=== PATIENT | female | born 1975 | race Caucasian/White ===

== ENCOUNTER 2016-06-15 09:31 | Emergency (ER) | payer OTHER ==
[~2016-06-15 09:31] MED LIST: Sodium Chloride 0.9% 1,000 ML BAG ONE
[2016-06-15] MEDS ORDERED: Ondansetron HCl/PF 4 MG/2 ML Vial ONE (10:33)
[2016-06-15] MEDS ORDERED: Ketorolac Tromethamine 30 MG/ML VIAL ONE (10:33)
[2016-06-15 10:36] LABS: #Basophils 0.1 thou/uL (0.0-0.2); #Eosinphils 0.2 thou/uL (0.0-0.7); #Lymphocytes 1.6 thou/uL (1.20-3.40); #Monocytes 0.5 thou/uL (0.11-0.59); #Neutrophils 4.6 thou/uL (1.40-6.50); %Basophils 1.9 % (0.0-1.0); %Eosinophils 2.5 % (0.0-10.0); %Lymphocytes 23.2 % (21.0-51.0); %Monocytes 7.2 % (0.0-10.0); %Neutrophils 65.3 % (42.0-75.0); Hemoglobin 15.1 g/dL (12.0-16.0); Mean Corpuscular HGB CONC 33.8 g/dL (32.0-36.0); Mean Corpuscular Volume 94.8 fl (81.0-99.0); Platelet Count 270 thou/uL (130-400); Red Blood Cell (RBC) Count 4.73 mill/uL (4.20-5.40)
[2016-06-15 10:52] LABS: ALT (SGPT) 15 U/L (0-55); AST (SGOT) 16 U/L (5-34); Albumin 4.3 g/dL (3.5-5.0); Alkaline Phosphatase 69 U/L (40-150); Anion Gap 15 mmol/L (10-20); BUN (Urea Nitrogen) 15 mg/dL (7.0-18.7); Bilirubin, Total 0.8 mg/dL (0.2-1.2); Calc. Creatinine Clearance 0 mL/min (70-130); Carbon Dioxide 22 mmol/L (22-29); Chloride 108 mmol/L (98-107); Estimated GFR-MDRD 82; Globulin 2.4 g/dL (2.4-3.5); Glucose 99 mg/dL (70-105); Potassium 4.5 mmol/L (3.5-5.1); Protein, Total 6.7 g/dL (6.0-8.3); Sodium 140 mmol/L (136-145)
[2016-06-15 10:54] LABS: BHCG - Serum NEGATIVE (NEGATIVE); Pregs Control Background? CLEAR/WHITE (CLR/WHITE); Pregs Control Bar Appear? YES (CONTROL BAR)
[2016-06-15 11:52] LABS: Bilirubin Negative (Negative); Blood, Urine Negative (Negative); Clarity Cloudy (Clear); Glucose, Urine (Dipstick) Negative (Negative); Leukocyte Negative (Negative); Nitrite Negative (Negative); Protein, Urine (Dipstick) Negative (Neg-Trace); Urobilinogen 0.2 mg/dL (0.2-1.0); pH, Urine 5.5 (5.0-9.0)
[2016-06-15 11:53] LABS: Specific Gravity, Urine 1.026 (1.002-1.036)
[2016-06-15 11:54] LABS: Bacteria/HPF 1+ HPF (None Seen); RBC/HPF 0-3 HPF (0-3); Squamous Epithelial 0-3 HPF (0-3); WBC/HPF 0-3 HPF (0-3)
[2016-06-15 11:55] LABS: Crystals/HPF 1+ AMORPH URATES HPF (Negative)
[2016-06-15] MEDS ORDERED: Iopamidol 370 76% 100 ML VIAL ONE (13:07)
--- NOTE | 2016-06-15 14:14 | CT ---
+CT ABDOMEN AND PELVIS WITH IV AND ORAL CONTRAST: HISTORY: Abdomen pain. Diarrhea. FINDINGS: No comparison. The lung bases are clear. The liver, spleen, kidneys, adrenal glands, and pancreas have a normal CT appearance. No enlarged lymph nodes or free fluid are apparent. The appendix is n ot inflamed. Urinary bladder is unremarkable. Arcuate configuration of the uterus is suspected. IMPRESSION: No acute abnormalities are demonstrated. POS: [facility]
--- NOTE | 2016-06-15 15:54 | ERRECORD ---
[facility] EMERGENCY RECORD HPI ABDOMINAL PAIN (10:09 LLDO) CHIEF COMPLAINTS: Patient presents for evaluation of abdominal pain, Patient presents for evaluation of has had intermittent diarrhea and not feeling well for 4 days. nausea w/o vomiting. fever, low grade. the severe LLQ pain started about 0300 this morning and has been worsening. HISTORIAN: History provided by patient, History provided by patient's spouse. LOCATION FEMALE: Symptoms are localized, most severe in the left lower quadrant. QUALITY: Pain is dull in nature, described as aching, described as cramping, described as BECOMES SHARP WITH MOVEMENT OR PALPATION. SEVERITY: Maximum severity of symptoms severe, Currently symptoms are moderate. TIME COURSE: Gradual onset of symptoms, Symptoms are constant, Symptoms are worsening. ASSOCIATED WITH FEMALE: No associated symptoms, No associated recent antibiotic use, No associated bright red blood per rectum, No associated chills, No associated constipation, Associated with diarrhea, Associated with fever, Measured maximum temperature 101 to 101.9 degrees, Associated with loss of appetite, Associated with nausea, No associated trauma, No associated urinary tract infection signs or symptoms, No associated vomiting. RELIEVED BY: Patient's condition relieved by nothing. EXACERBATED BY: Patient's condition exacerbated by movement, Patient's condition exacerbated by PALPATION. RISK FACTORS FEMALE: No ectopic risk factors present, No abdominal aortic aneurysm risk factors, No coronary artery disease risk factors. ROS CONSTITUTIONAL: Historian denies chills, reports fatigue, reports fever, reports weakness. (10:15 LLDO) EYES: Negative eye review of systems, Historian denies eye pain, denies eye redness, denies eye discharge. (10:18 LLDO) ENT: SEE HPI...DRY MOUTH. (10:15 LLDO) CARDIOVASCULAR: Negative cardiovascular review of systems, Historian denies chest pain, no radiation, Historian denies diaphoresis, denies syncope. (10:18 LLDO) RESPIRATORY: Negative respiratory review of systems, Historian denies cough, denies shortness of breath, denies sputum. (10:18 LLDO) GI: Historian reports abdominal pain, reports anorexia, reports appetite changes, denies constipation, reports diarrhea, denies hematemesis, denies hematochezia, denies jaundice, denies melena, reports nausea, reports stool changes, denies vomiting. any food or water triggers diarrhea. (10:15 LLDO) GENITOURINARY FEMALE: Historian reports urine output changes. (10:15 LLDO) &a-1R&a+25V*p+0X*c0233A*c202B*c15G*c2P*p-0X&a-25V&a+1R Name: Jeannine Galdamez : 1975 F40 MedRec: [id number] AcctNum: [id number] Prepared: Perri Jun 15, 2016 21:13 by Interface Page 1 of 5 pMD [facility] EMERGENCY RECORD MUSCULOSKELETAL: Negative musculoskeletal review of systems, Historian denies arthralgias, denies back pain, denies injury, denies myalgias, denies neck pain. (10:18 LLDO) SKIN: Negative skin review of systems, Historian denies cellulitis, denies rash, denies skin changes, denies skin lesions. (10:18 LLDO) NEUROLOGIC: Negative neurologic review of systems, Historian denies confusion, denies dizziness, denies focal weakness, denies mental status changes. (10:18 LLDO) HEMO/LYMPHATIC: Normal hematologic/lymphatic system review, Historian denies abnormal blood clotting, denies gum bleeding, denies petechiae. (10:18 LLDO) ALLERGIC/IMMUNOLOGIC: Normal allergy/immunologic system review, Historian denies eczema, denies environmental allergies, denies food allergies. (10:18 LLDO) PSYCHIATRIC: Negative psychiatric review of systems, Historian denies alcohol abuse, denies anxiety, denies depression, denies drug abuse, denies hallucinations. (10:18 LLDO) NOTES: All systems reviewed, negative except as described above. (10:15 LLDO) PAST MEDICAL HISTORY MEDICAL HISTORY: No past medical history, Flu vaccine up to date, Tetanus not up to date, Pneumococcal vaccine up to date, Past medical history includes gynecologic history, polycystic ovary disease, Notes: VERIFIED 10-10-14, Notes: hx of anxiety,. (11:46 SCHI) FEMALE SURGICAL HISTORY: ABLATION UTERINE, TUBAL LIGATOIN. (11:46 SCHI) PSYCHIATRIC HISTORY: Notes: ANXIETY, Psychiatric history includes, anxiety, Previous psychiatric history: DIAZEPAM 5 MG 2/DAY. (11:46 SCHI) SOCIAL HISTORY: Patient drinks socially, every week, Patient currently uses tobacco, smokes cigarettes, Patient smokes 1/2 packs per day, Patient drinks every day, less than 5 drinks per day, Patient denies drug use, Patient currently uses tobacco, smokes cigarettes, 3-4 CIGARETTES PER DAY, Lives at home. (11:46 SCHI) NOTES: Nursing records reviewed, Agree with nursing records, Medication list reviewed. (10:18 LLDO) KNOWN ALLERGIES Flagyl: Source: Patient, - HIVES, DIZZINESS, HEADACHE CURRENT MEDICATIONS (09:45 SCHI) Valium: TABLET : Strength - 5 mg : ORAL Patient Dose: 5 mg Oral 2 times a day (before meals). Zoloft: TABLET : Strength - 100 mg : ORAL Patient Dose: 50 mg Oral once a day. &a-1R&a+25V*p+0X*l3870B*c202B*c15G*c2P*p-0X&a-25V&a+1R Name: Jeannine Galdamez : 1975 F40 MedRec: [id number] AcctNum: [id number] Prepared: Perri Jun 15, 2016 21:13 by Interface Page 2 of 5 pMD [facility] EMERGENCY RECORD VITAL SIGNS VITAL SIGNS: BP: 121/67, Pulse: 80, Resp: 18, Temp: 98.4 (Tympanic), Pain: 7 (Constant), O2 sat: 99 on Room Air, Time: 06/15/2016 09:43. (09:43 SCHI) BP: 117/81, Pulse: 78, Resp: 18, Temp: 98.6 (Tympanic), Pain: 0, O2 sat: 99 on Room Air, Time: 06/15/2016 16:00. (16:00 SCHI) BP: 123/68, Pulse: 77, Time: 06/15/2016 11:00. (11:00 SCHI) BP: 117/63, Pulse: 77, Resp: 18, Pain: 5, O2 sat: 98 on Room Air, Time: 06/15/2016 12:00. (12:00 SCHI) BP: 109/80, Pulse: 81, Resp: 18, Pain: 5, O2 sat: 97 on Room Air, Time: 06/15/2016 13:00. (13:00 SCHI) BP: 117/63, Pulse: 71, Resp: 18, Pain: 4, O2 sat: 99 on Room Air, Time: 06/15/2016 14:00. (14:00 SCHI) BP: 116/80, Pulse: 87, Resp: 20, Pain: 2, O2 sat: 99 on Room Air, Time: 06/15/2016 15:00. (15:00 SCHI) PHYSICAL EXAM CONSTITUTIONAL: Vital Signs Reviewed, Patient afebrile, Pulse normal, Blood pressure normal, Respiratory rate normal, Patient appears non toxic, Patient appears, in moderate pain distress, but intermittently severe, Patient alert and oriented to person, place and time, Nursing notes reviewed. (10:16 LLDO) HEAD: Head exam normal, Head exam included findings of head atraumatic, normocephalic. (10:18 LLDO) EYES: Eye exam normal, Eye exam included findings of eyelids normal to inspection, Pupils equally round and reactive to light, Extraocular muscles intact. (10:18 LLDO) ENT: Ear exam normal, Nose exam normal, Pharynx exam normal, Uvula exam normal, Tonsil exam normal, Mouth exam included findings of, mucous membranes dry. (10:16 LLDO) NECK: Neck exam normal, Neck exam included findings of normal range of motion, Trachea midline, no meningeal signs, no tenderness. (10:18 LLDO) RESPIRATORY CHEST: Respiratory and chest exam normal, Respiratory exam included findings of, Chest exam included findings of chest movement symmetrical, Chest expansion equal. (10:18 LLDO) CARDIOVASCULAR: Cardiovascular assessment normal, Cardiovascular exam included findings of heart rate regular rate and rhythm, Heart sounds normal. (10:18 LLDO) ABDOMEN FEMALE: Abdominal exam included findings of abdomen tender, to the left lower quadrant, moderate intensity, Bowel sounds, hyperactive, Liver normal, Spleen normal, no distension, no mass, no pulsatile masses, no peritoneal signs, Rovsing's sign absent. (10:16 LLDO) BACK: Back exam normal, Back exam included findings of normal inspection, range of motion normal. (10:18 LLDO) UPPER EXTREMITY: Upper extremity exam normal, Upper extremity &a-1R&a+25V*p+0X*x3911Q*c202B*c15G*c2P*p-0X&a-25V&a+1R Name: Jeannine Galdamez : 1975 F40 MedRec: [id number] AcctNum: [id number] Prepared: Perri Jun 15, 2016 21:13 by Interface Page 3 of 5 pMD [facility] EMERGENCY RECORD exam included findings of inspection normal, Range of motion normal. (10:18 LLDO) LOWER EXTREMITY: Lower extremity exam normal, Lower extremity exam included findings of inspection normal, Range of motion normal. (10:18 LLDO) NEURO: Neuro exam normal, Neuro exam findings include patient oriented to person, place and time, Speech normal, Errol coma scale 15. (10:18 LLDO) SKIN: Skin exam normal, Skin exam included findings of skin warm, dry, and normal in color, no rash. (10:18 LLDO) PSYCHIATRIC: Psychiatric exam normal, Psychiatric exam included findings of patient oriented to person place and time, Normal affect. (10:18 LLDO) MEDICATION ADMINISTRATION SUMMARY Drug Name: Bentyl oral, Dose Ordered: 20 mg, Route: Oral, Status: Given, Time: 14:53 06/15/2016, Drug Name: Duramorph (PF), Dose Ordered: 4 mg, Route: IV Push, Status: Given, Time: 14:45 06/15/2016, Drug Name: Duramorph (PF), Dose Ordered: 4 mg, Route: IV Push, Status: Given, Time: 10:51 06/15/2016, Drug Name: Toradol injection, Dose Ordered: 30 mg, Route: IV Push, Status: Given, Time: 10:51 06/15/2016, Drug Name: Zofran intravenous, Dose Ordered: 8 mg, Route: IV Push, Status: Given, Time: 10:50 06/15/2016, Drug Name: *sodium chloride 0.9 % intravenous, Dose Ordered: 1 L, Route: IV Fluid Infusion, Status: Given, Time: 10:50 06/15/2016, *Additional information available in notes, Detailed record available in Medication Service section. PROBLEM LIST No recorded problems DIAGNOSIS (15:42 LLDO) FINAL: PRIMARY: diverticulitis. PRESCRIPTION Bentyl oral: TABLET : 20 mg : ORAL : Quantity: 1 Unit: tab(s) Route: ORAL Schedule: every 8 hours PRN Dispense: 30 Unit: tab(s) May substitute. Refills: 1 . (15:45 LLDO) NOTES: No Refills. (15:45 LLDO) Keflex: CAPSULE (HARD, SOFT, ETC.) : 500 mg : ORAL : Quantity: 1 Unit: cap(s) Route: ORAL Schedule: 3 times a day Dispense: 30 May substitute. Refills: No Refills . (15:45 LLDO) NOTES: ^s=No Refills No Refills. (15:45 LLDO) Septra DS: TABLET : 800 mg-160 mg : ORAL : Quantity: 1 &a-1R&a+25V*p+0X*v4798G*c202B*c15G*c2P*p-0X&a-25V&a+1R Name: Jeannine Galdamez : 1975 F40 MedRec: [id number] AcctNum: [id number] Prepared: [facility] Jun 15, 2016 21:13 by Interface Page 4 of 5 pMD [facility] EMERGENCY RECORD Unit: tab(s) Route: ORAL Schedule: 2 times a day (before meals) Dispense: 20 May substitute. Refills: No Refills . (15:45 LLDO) NOTES: ^s=^s=No Refills No Refills No Refills. (15:45 LLDO) Tylenol-Codeine #3: TABLET : 300 mg-30 mg : ORAL : Quantity: 1-2 Unit: tab(s) Route: ORAL Schedule: every 4 hours prn Dispense: 30 Unit: tab(s) May substitute. Refills: No Refills . (15:45 LLDO) NOTES: ^s=^s=<CARET>s=No Refills No Refills No Refills No Refills. (15:45 LLDO) Zofran ODT: TABLET, RAPID DISSOLVE : 4 mg : ORAL : Quantity: 1-2 Unit: tab(s) Route: ORAL Schedule: every 6 hours PRN Dispense: 20 May substitute. Refills: 1 . (15:45 LLDO) NOTES: DISSOLVE UNDER TONGUE No Refills. (15:45 LLDO) Zofran ODT (REPRINT): TABLET, RAPID DISSOLVE : 4 mg : ORAL : Quantity: 1-2 Unit: tab(s) Route: ORAL Schedule: every 6 hours PRN Dispense: 20 May substitute. Refills: 1 . (15:53 LLDO) Tylenol-Codeine #3 (REPRINT): TABLET : 300 mg-30 mg : ORAL : Quantity: 1-2 Unit: tab(s) Route: ORAL Schedule: every 4 hours prn Dispense: 30 Unit: tab(s) May substitute. Refills: No Refills . (15:53 LLDO) Septra DS (REPRINT): TABLET : 800 mg-160 mg : ORAL : Quantity: 1 Unit: tab(s) Route: ORAL Schedule: 2 times a day (before meals) Dispense: 20 May substitute. Refills: No Refills . (15:54 LLDO) Keflex (REPRINT): CAPSULE (HARD, SOFT, ETC.) : 500 mg : ORAL : Quantity: 1 Unit: cap(s) Route: ORAL Schedule: 3 times a day Dispense: 30 May substitute. Refills: No Refills . (15:54 LLDO) Bentyl oral (REPRINT): TABLET : 20 mg : ORAL : Quantity: 1 Unit: tab(s) Route: ORAL Schedule: every 8 hours PRN Dispense: 30 Unit: tab(s) May substitute. Refills: 1 . (15:54 LLDO) DISPOSITION PATIENT: Disposition Type: Discharge, Disposition: *Discharge Home. (15:42 LLDO) Patient left the department. (16:00 [facility] Thornton: ELVIS=MD Pérez, Filemon [facility]ADRIAN Nguyen, Julia &a-1R&a+25V*p+0X*x7997N*c202B*c15G*c2P*p-0X&a-25V&a+1R Name: Rudolph Jeannine Ford : 1975 F40 MedRec: [id number] AcctNum: [id number] Prepared: Perri Jun 15, 2016 21:13 by Interface Page 5 of 5 pMD MTDD
--- NOTE | 2016-06-15 16:00 | PICIS ---
[facility] EMERGENCY RECORD TRIAGE (:44 SCHI) TRIAGE NOTES: DIARRHEA SINCE SUNDAY AND ABD PAIN THAT STARTED YESTERDAY. (:44 SCHI) PATIENT: NAME: Jeannine Galdamez, AGE: 40, GENDER: female, : Sun1975, TIME OF GREET: SunJun 15, 2016 09:32, PREFERRED LANGUAGE: Italian, ETHNICITY: Not or , FALL RISK: NO, ECODE BILLING MAP: [facility], SSN: [id number], Zip Code: [address], KG WEIGHT: 56.70, PHONE: , , , PERSON ID: [id number], PCP: Jessica ESQUIVEL. (:44 SCHI) COMPLAINT: ABDOMINAL PAIN. (09:44 SCHI) ADMISSION: URGENCY: 3 Urgent, ADMISSION SOURCE: Home, TRANSPORT: Walk-in, BED: ED -03. (09:44 SCHI) ASSESSMENT: Assessment: ALERT AND ORIENTED X 4, SKIN WARM AND DRY RESP EVEN AND UNLABORED,. (11:46 SCHI) PAIN: Patient complains of pain described as. (11:46 SCHI) TRIAGE SCREENING: Patient denies suicidal ideation, Patient denies presence of domestic violence. (11:46 SCHI) PROVIDERS: TRIAGE NURSE: Julia Nguyen RN. (09:44 SCHI) VITAL SIGNS: BP 121/67, Pulse 80, Resp 18, Temp 98.4, (Tympanic), Pain 7, (Constant), O2 Sat 99, on Room Air, Time 06/15/2016 09:43. (09:43 SCHI) PREVIOUS VISIT ALLERGIES: Flagyl. (09:44 SCHI) Flagyl. (11:46 SCHI) KNOWN ALLERGIES Flagyl: Source: Patient, - HIVES, DIZZINESS, HEADACHE CURRENT MEDICATIONS (09:45 SCHI) Valium: TABLET : Strength - 5 mg : ORAL Patient Dose: 5 mg Oral 2 times a day (before meals). Zoloft: TABLET : Strength - 100 mg : ORAL Patient Dose: 50 mg Oral once a day. VITAL SIGNS VITAL SIGNS: BP: 121/67, Pulse: 80, Resp: 18, Temp: 98.4 (Tympanic), Pain: 7 (Constant), O2 sat: 99 on Room Air, Time: 06/15/2016 09:43. (09:43 SCHI) BP: 117/81, Pulse: 78, Resp: 18, Temp: 98.6 (Tympanic), Pain: 0, O2 sat: 99 on Room Air, Time: 06/15/2016 16:00. (16:00 SCHI) BP: 123/68, Pulse: 77, Time: 06/15/2016 11:00. (11:00 SCHI) BP: 117/63, Pulse: 77, Resp: 18, Pain: 5, O2 sat: 98 on Room Air, Time: 06/15/2016 12:00. (12:00 SCHI) BP: 109/80, Pulse: 81, Resp: 18, Pain: 5, O2 sat: 97 on Room Air, Time: 06/15/2016 13:00. (13:00 SCHI) BP: 117/63, Pulse: 71, Resp: 18, Pain: 4, O2 sat: 99 on Room Air, Time: 06/15/2016 14:00. (14:00 SCHI) &a-1R&a+25V*p+0X*e4823L*c202B*c15G*c2P*p-0X&a-25V&a+1R Name: Jeannine Galdamez : 1975 F40 MedRec: [id number] AcctNum: [id number] Prepared: [facility] Jun 15, 2016 21:19 by Interface Page [address] [facility] EMERGENCY RECORD BP: 116/80, Pulse: 87, Resp: 20, Pain: 2, O2 sat: 99 on Room Air, Time: 06/15/2016 15:00. (15:00 SCHI) NURSING ASSESSMENT: ABDOMEN CONSTITUTIONAL: Patient arrives ambulatory, Gait steady, History obtained from patient, Patient appears comfortable, Patient cooperative, Patient alert, Oriented to person, place and time, Skin warm, Skin dry, Skin normal in color, Mucous membranes pink, Mucous membranes moist, Patient is well-groomed, Patient complains of diarrhea since sunday and lower left abd pain that started yesterday. (09:45 SCHI) PAIN: cramping pain, to the left lower quadrant, on a scale 0-10 patient rates pain as 7. (13:04 SCHI) ABDOMEN: Abdomen assessment findings include abdomen symmetrical, Abdomen soft, Associated with nausea, Associated with diarrhea, watery, since sunday. (09:45 SCHI) GENITOURINARY FEMALE: Notes: no symptoms stated. (09:45 SCHI) NOTES: Patient tolerated procedure well. (09:45 SCHI) SAFETY: Side rails up, Cart/Stretcher in lowest position, Family at bedside, Hospital ID band on. (09:45 SCHI) NURSING PLAN OF CARE: Pain:, Patient is able to participate in development and implementation of nursing plan of care for pain. (09:45 SCHI) NURSING PROCEDURE: DISCHARGE NOTE (16:00 SCHI) DISCHARGE: Patient discharged to home, ambulating without assistance, family driving, accompanied by other family member, Summary of Care printed/ provided, Patient requested and was provided an electronic copy of Discharge Instructions, Transition record given to patient, Discharge instructions given to patient, Simple or moderate discharge teaching performed, Prescriptions given and instructions on side effects given, Medication reconciliation form given, Above person(s) verbalized understanding of discharge instructions and follow-up care, Patient treated and evaluated by physician. BELONGINGS: Belongings and valuables with patient at time of discharge include:, Belongings remain with patient, Valuables remain with patient. SAFETY: Side rails up, Cart/Stretcher in lowest position, Family at bedside, Hospital ID band on. NURSING PROCEDURE: IV PATIENT IDENITIFIER: Patient actively involved in identification process, Patient's identity verified by patient stating name, Patient's identity verified by patient stating date, Patient's identity verified by hospital ID bracelet. (10:49 SCHI) IV SITE 1: IV therapy indicated for hydration, IV therapy indicated for medication administration, IV established, to the right &a-1R&a+25V*p+0X*y6746H*c202B*c15G*c2P*p-0X&a-25V&a+1R Name: Jeannine Galdamez : 1975 F40 MedRec: [id number] AcctNum: [id number] Prepared: [facility] Jun 15, 2016 21:19 by Interface Page [address] [facility] EMERGENCY RECORD forearm, using a 20 gauge catheter, in one attempt, IV site prepped with chloraprep, Saline lock established, Flushed with normal saline (mls): 10. (10:49 SCHI) FOLLOW-UP SITE 1: IV discontinued, due to patient being discharged, catheter intact. (16:00 SCHI) NURSING PROCEDURE: NURSE NOTES NURSES NOTES: Notes: contrast started pt reports pain improved,. (12:30 SCHI) Patient assisted to bathroom with steady gait, Notes: pain returning to lower abd and has made several trips to bathroom since returning from ct and drinking contrast. (14:25 SCHI) ORDER DETAILS Order Name: B type Natriuretic Peptide, Status: Active, Time: 10:07 06/15/2016, User: ELVIS, - Ordered for: MD Ortez Lloyd, - Entered by: MD Ortez Lloyd - [facility] Jun 15, 2016 10:07, - Quantity: 1, Order Name: CBC with Differential, Status: Active, Time: 10:00 06/15/2016, User: ELVIS, - Ordered for: MD Ortez Lloyd, - Entered by: MD Ortez Lloyd - [facility] Jun 15, 2016 10:00, - Quantity: 1, Order Name: Comprehensive Metabolic Panel, Status: Active, Time: 10:00 06/15/2016, User: ELVIS, - Ordered for: MD Ortez Lloyd, - Entered by: MD Ortez Lloyd - [facility] Jun 15, 2016 10:00, - Quantity: 1, Order Name: CT Abdomen Pelvis W Con, Status: Active, Time: 10:03 06/15/2016, User: ELVIS, - Ordered for: MD Ortez Lloyd, - Entered by: MD Ortez Lloyd - [facility] Jun 15, 2016 10:03, - Quantity: 1, Order Name: Culture, Urine, Status: Active, Time: 10:00 06/15/2016, User: ELVIS, - Ordered for: MD Ortez Lloyd, - Entered by: MD Ortez Lloyd [facility] Jun 15, 2016 10:00, - Quantity: 1, Order Name: Lactic Acid with repeat, Status: Active, Time: 10:00 06/15/2016, User: ELVIS, - Ordered for: MD Ortez Lloyd, - Entered by: MD Ortez Lloyd - [facility] Jun 15, 2016 10:00, - Quantity: 1, Order Name: Test, Serum (BHCG), Status: Active, Time: 10:14 06/15/2016, User: ELVIS, - Ordered for: MD Ortez Lloyd, - Entered by: MD Ortez Lloyd - [facility] Jun 15, 2016 10:14, - Quantity: 1, &a-1R&a+25V*p+0X*m8431S*c202B*c15G*c2P*p-0X&a-25V&a+1R Name: Jeannine Galdamez : 1975 F40 MedRec: [id number] AcctNum: [id number] Prepared: SunJun 15, 2016 21:19 by Interface Page 3 of 13 [facility] EMERGENCY RECORD Order Name: SALINE LOCK, Status: Done, Time: 10:49 06/15/2016, User: HELLEN, - Ordered for: MD Ortez Lloyd, - Entered by: MD Ortez Lloyd - [facility] Jun 15, 2016 10:00, - Quantity: 1, Order Name: Urinalysis with Microscopic, Status: Active, Time: 10:00 06/15/2016, User: ELVIS, - Ordered for: MD Ortez Lloyd, - Entered by: MD Ortez Lloyd - [facility] Jun 15, 2016 10:00, - Quantity: 1. MEDICATION ADMINISTRATION SUMMARY Drug Name: Bentyl oral, Dose Ordered: 20 mg, Route: Oral, Status: Given, Time: 14:53 06/15/2016, Drug Name: Duramorph (PF), Dose Ordered: 4 mg, Route: IV Push, Status: Given, Time: 14:45 06/15/2016, Drug Name: Duramorph (PF), Dose Ordered: 4 mg, Route: IV Push, Status: Given, Time: 10:51 06/15/2016, Drug Name: Toradol injection, Dose Ordered: 30 mg, Route: IV Push, Status: Given, Time: 10:51 06/15/2016, Drug Name: Zofran intravenous, Dose Ordered: 8 mg, Route: IV Push, Status: Given, Time: 10:50 06/15/2016, Drug Name: *sodium chloride 0.9 % intravenous, Dose Ordered: 1 L, Route: IV Fluid Infusion, Status: Given, Time: 10:50 06/15/2016, *Additional information available in notes, Detailed record available in Medication Service section. MEDICATION SERVICE Bentyl oral: Order: Bentyl oral (dicyclomine HCl) - Dose: 20 mg : Oral Schedule: Now Ordered by: Filemon Ortez MD Entered by: Filemon Ortez MD [facility] Jun 15, 2016 14:28 , Acknowledged by: Julia Nguyen RN [facility] Jun 15, 2016 14:33 Documented as given by: Julia Nguyen RN [facility] Jun 15, 2016 14:53 Patient, Medication, Dose, Route and Time verified prior to administration. Site: Medication administered P.O., Correct patient, time, route, dose and medication confirmed prior to administration, Patient advised of actions and side-effects prior to administration, Allergies confirmed and medications reviewed prior to administration. Duramorph (PF): Order: Duramorph (PF) (morphine sulfate/preservative free) - Dose: 4 mg : IV Push Schedule: Now Ordered by: Filemon Ortez MD Entered by: Filemon Ortez MD [facility] Jun 15, 2016 10:06 Documented as given by: Julia Nguyen RN [facility] Jun 15, 2016 10:51 Patient, Medication, Dose, Route and Time verified prior to administration. &a-1R&a+25V*p+0X*m7455E*c202B*c15G*c2P*p-0X&a-25V&a+1R Name: Jeannine Galdamez Liliana : 1975 F40 MedRec: [id number] AcctNum: [id number] Prepared: SunJun 15, 2016 21:19 by Interface Page [address] [facility] EMERGENCY RECORD IV SITE #1 IVP, subsequent different medication, Catheter placement confirmed via flush prior to administration, IV site without signs or symptoms of infiltration during medication administration, No swelling during administration, No drainage during administration, IV flushed after administration, Correct patient, time, route, dose and medication confirmed prior to administration, Patient advised of actions and side-effects prior to administration, Allergies confirmed and medications reviewed prior to administration. Duramorph (PF): Order: Duramorph (PF) (morphine sulfate/preservative free) - Dose: 4 mg : IV Push Schedule: Now Ordered by: Filemon Ortez MD Entered by: Filemon Ortez MD [facility] Jun 15, 2016 14:26 , Acknowledged by: Julia Nguyen RN [facility] Jun 15, 2016 14:33 Documented as given by: Julia Nguyen RN [facility] Jun 15, 2016 14:45 Patient, Medication, Dose, Route and Time verified prior to administration. IV SITE #1 IVP, repeat same medication, Catheter placement confirmed via flush prior to administration, IV site without signs or symptoms of infiltration during medication administration, No swelling during administration, No drainage during administration, IV flushed after administration, Correct patient, time, route, dose and medication confirmed prior to administration, Patient advised of actions and side-effects prior to administration, Allergies confirmed and medications reviewed prior to administration. sodium chloride 0.9 % intravenous: Order: sodium chloride 0.9 % intravenous (0.9 % sodium chloride) - Dose: 1 L : IV Fluid Infusion Notes: (Bolus) after bolus, run NS at 150 ml/h Ordered by: Filemon Otrez MD Entered by: Filemon Ortez MD [facility] Jun 15, 2016 10:07 Documented as given by: Julia Nguyen RN [facility] Jun 15, 2016 10:50 Patient, Medication, Dose, Route and Time verified prior to administration. IV SITE #1 IV fluids established for hydration, IV SITE #1 into right forearm, IV SITE #1 1st bag hung, amount 1 Liter hung, IV SITE #1 bolus of 1000 ml established, IV SITE #1 Rate of bolus, wide open, via primary tubing, Catheter placement confirmed via flush prior to administration, IV site without signs or symptoms of infiltration during medication administration, No swelling during administration, No drainage during administration, IV flushed after administration, Correct patient, time, route, dose and medication confirmed prior to administration, Patient advised of actions and side-effects prior to administration, Allergies confirmed and medications reviewed prior to administration. : Follow Up : Response assessment performed, No signs or symptoms of allergic reaction noted, _IV SITE #1:_, IV fluid infusion discontinued, on SunJun 15, 2016 12:30, Total fluid hydration time IV site 1 1 hour, 40 minutes, ., Total amount infused: 1000, IV Line flushed after administration. (12:30 SCHI) &a-1R&a+25V*p+0X*x9423M*c202B*c15G*c2P*p-0X&a-25V&a+1R Name: Jeannine Galdamez : 1975 F40 MedRec: [id number] AcctNum: [id number] Prepared: [facility] Jun 15, 2016 21:19 by Interface Page [address] [facility] EMERGENCY RECORD Toradol injection: Order: Toradol injection (ketorolac tromethamine) - Dose: 30 mg : IV Push Schedule: Now Ordered by: Filemon Ortez MD Entered by: Filemon Ortez MD [facility] Jun 15, 2016 10:06 Documented as given by: Julia Nguyen RN [facility] Jun 15, 2016 10:51 Patient, Medication, Dose, Route and Time verified prior to administration. IV SITE #1 IVP, subsequent different medication, Catheter placement confirmed via flush prior to administration, IV site without signs or symptoms of infiltration during medication administration, No swelling during administration, No drainage during administration, IV flushed after administration, Correct patient, time, route, dose and medication confirmed prior to administration, Patient advised of actions and side-effects prior to administration, Allergies confirmed and medications reviewed prior to administration. Zofran intravenous: Order: Zofran intravenous (ondansetron HCl) - Dose: 8 mg : IV Push Schedule: Now Ordered by: Filemon Ortez MD Entered by: Filemon Ortez MD [facility] Jun 15, 2016 10:06 Documented as given by: Julia Nguyen RN [facility] Jun 15, 2016 10:50 Patient, Medication, Dose, Route and Time verified prior to administration. IV SITE #1 IVP, initial medication, Catheter placement confirmed via flush prior to administration, IV site without signs or symptoms of infiltration during medication administration, No swelling during administration, No drainage during administration, IV flushed after administration, Correct patient, time, route, dose and medication confirmed prior to administration, Patient advised of actions and side-effects prior to administration, Allergies confirmed and medications reviewed prior to administration. HPI ABDOMINAL PAIN (10:09 LLDO) CHIEF COMPLAINTS: Patient presents for evaluation of abdominal pain, Patient presents for evaluation of has had intermittent diarrhea and not feeling well for 4 days. nausea w/o vomiting. fever, low grade. the severe LLQ pain started about 0300 this morning and has been worsening. HISTORIAN: History provided by patient, History provided by patient's spouse. LOCATION FEMALE: Symptoms are localized, most severe in the left lower quadrant. QUALITY: Pain is dull in nature, described as aching, described as cramping, described as BECOMES SHARP WITH MOVEMENT OR PALPATION. SEVERITY: Maximum severity of symptoms severe, Currently symptoms are moderate. TIME COURSE: Gradual onset of symptoms, Symptoms are constant, Symptoms are worsening. ASSOCIATED WITH FEMALE: No associated symptoms, No associated recent antibiotic use, No associated bright red blood per &a-1R&a+25V*p+0X*x7923G*c202B*c15G*c2P*p-0X&a-25V&a+1R Name: Jeannine Galdamez : 1975 F40 MedRec: [id number] AcctNum: [id number] Prepared: [facility] Jun 15, 2016 21:19 by Interface Page [address] [facility] EMERGENCY RECORD rectum, No associated chills, No associated constipation, Associated with diarrhea, Associated with fever, Measured maximum temperature 101 to 101.9 degrees, Associated with loss of appetite, Associated with nausea, No associated trauma, No associated urinary tract infection signs or symptoms, No associated vomiting. RELIEVED BY: Patient's condition relieved by nothing. EXACERBATED BY: Patient's condition exacerbated by movement, Patient's condition exacerbated by PALPATION. RISK FACTORS FEMALE: No ectopic risk factors present, No abdominal aortic aneurysm risk factors, No coronary artery disease risk factors. ROS CONSTITUTIONAL: Historian denies chills, reports fatigue, reports fever, reports weakness. (10:15 LLDO) EYES: Negative eye review of systems, Historian denies eye pain, denies eye redness, denies eye discharge. (10:18 LLDO) ENT: SEE HPI...DRY MOUTH. (10:15 LLDO) CARDIOVASCULAR: Negative cardiovascular review of systems, Historian denies chest pain, no radiation, Historian denies diaphoresis, denies syncope. (10:18 LLDO) RESPIRATORY: Negative respiratory review of systems, Historian denies cough, denies shortness of breath, denies sputum. (10:18 LLDO) GI: Historian reports abdominal pain, reports anorexia, reports appetite changes, denies constipation, reports diarrhea, denies hematemesis, denies hematochezia, denies jaundice, denies melena, reports nausea, reports stool changes, denies vomiting. any food or water triggers diarrhea. (10:15 LLDO) GENITOURINARY FEMALE: Historian reports urine output changes. (10:15 LLDO) MUSCULOSKELETAL: Negative musculoskeletal review of systems, Historian denies arthralgias, denies back pain, denies injury, denies myalgias, denies neck pain. (10:18 LLDO) SKIN: Negative skin review of systems, Historian denies cellulitis, denies rash, denies skin changes, denies skin lesions. (10:18 LLDO) NEUROLOGIC: Negative neurologic review of systems, Historian denies confusion, denies dizziness, denies focal weakness, denies mental status changes. (10:18 LLDO) HEMO/LYMPHATIC: Normal hematologic/lymphatic system review, Historian denies abnormal blood clotting, denies gum bleeding, denies petechiae. (10:18 LLDO) ALLERGIC/IMMUNOLOGIC: Normal allergy/immunologic system review, Historian denies eczema, denies environmental allergies, denies food allergies. (10:18 LLDO) PSYCHIATRIC: Negative psychiatric review of systems, Historian denies alcohol abuse, denies anxiety, denies depression, denies drug &a-1R&a+25V*p+0X*y8895K*c202B*c15G*c2P*p-0X&a-25V&a+1R Name: Jeannine Galdamez : 1975 F40 MedRec: [id number] AcctNum: [id number] Prepared: [facility] Jun 15, 2016 21:19 by Interface Page [address] [facility] EMERGENCY RECORD abuse, denies hallucinations. (10:18 LLDO) NOTES: All systems reviewed, negative except as described above. (10:15 LLDO) PAST MEDICAL HISTORY MEDICAL HISTORY: No past medical history, Flu vaccine up to date, Tetanus not up to date, Pneumococcal vaccine up to date, Past medical history includes gynecologic history, polycystic ovary disease, Notes: VERIFIED -15, Notes: hx of anxiety,. (11:46 SCHI) FEMALE SURGICAL HISTORY: ABLATION UTERINE, TUBAL LIGATOIN. (11:46 SCHI) PSYCHIATRIC HISTORY: Notes: ANXIETY, Psychiatric history includes, anxiety, Previous psychiatric history: DIAZEPAM 5 MG 2/DAY. (11:46 SCHI) SOCIAL HISTORY: Patient drinks socially, every week, Patient currently uses tobacco, smokes cigarettes, Patient smokes 1/2 packs per day, Patient drinks every day, less than 5 drinks per day, Patient denies drug use, Patient currently uses tobacco, smokes cigarettes, 3-4 CIGARETTES PER DAY, Lives at home. (11:46 SCHI) NOTES: Nursing records reviewed, Agree with nursing records, Medication list reviewed. (10:18 LLDO) PHYSICAL EXAM CONSTITUTIONAL: Vital Signs Reviewed, Patient afebrile, Pulse normal, Blood pressure normal, Respiratory rate normal, Patient appears non toxic, Patient appears, in moderate pain distress, but intermittently severe, Patient alert and oriented to person, place and time, Nursing notes reviewed. (10:16 LLDO) HEAD: Head exam normal, Head exam included findings of head atraumatic, normocephalic. (10:18 LLDO) EYES: Eye exam normal, Eye exam included findings of eyelids normal to inspection, Pupils equally round and reactive to light, Extraocular muscles intact. (10:18 LLDO) ENT: Ear exam normal, Nose exam normal, Pharynx exam normal, Uvula exam normal, Tonsil exam normal, Mouth exam included findings of, mucous membranes dry. (10:16 LLDO) NECK: Neck exam normal, Neck exam included findings of normal range of motion, Trachea midline, no meningeal signs, no tenderness. (10:18 LLDO) RESPIRATORY CHEST: Respiratory and chest exam normal, Respiratory exam included findings of, Chest exam included findings of chest movement symmetrical, Chest expansion equal. (10:18 LLDO) CARDIOVASCULAR: Cardiovascular assessment normal, Cardiovascular exam included findings of heart rate regular rate and rhythm, Heart sounds normal. (10:18 LLDO) ABDOMEN FEMALE: Abdominal exam included findings of abdomen tender, to the left lower quadrant, moderate &a-1R&a+25V*p+0X*r6979S*c202B*c15G*c2P*p-0X&a-25V&a+1R Name: Jeannine Galdamez : 1975 F40 MedRec: [id number] AcctNum: [id number] Prepared: SunJun 15, 2016 21:19 by Interface Page [address] [facility] EMERGENCY RECORD intensity, Bowel sounds, hyperactive, Liver normal, Spleen normal, no distension, no mass, no pulsatile masses, no peritoneal signs, Rovsing's sign absent. (10:16 LLDO) BACK: Back exam normal, Back exam included findings of normal inspection, range of motion normal. (10:18 LLDO) UPPER EXTREMITY: Upper extremity exam normal, Upper extremity exam included findings of inspection normal, Range of motion normal. (10:18 LLDO) LOWER EXTREMITY: Lower extremity exam normal, Lower extremity exam included findings of inspection normal, Range of motion normal. (10:18 LLDO) NEURO: Neuro exam normal, Neuro exam findings include patient oriented to person, place and time, Speech normal, Errol coma scale 15. (10:18 LLDO) SKIN: Skin exam normal, Skin exam included findings of skin warm, dry, and normal in color, no rash. (10:18 LLDO) PSYCHIATRIC: Psychiatric exam normal, Psychiatric exam included findings of patient oriented to person place and time, Normal affect. (10:18 LLDO) EVENTS TRANSFER: Triage to Emergency Main ED -03. (SunJun 15, 2016 09:44 SCHI) Removed from Emergency Main ED -03. (16:00 SCHI) PROBLEM LIST No recorded problems DIAGNOSIS (15:42 LLDO) FINAL: PRIMARY: diverticulitis. DISPOSITION PATIENT: Disposition Type: Discharge, Disposition: *Discharge Home. (15:42 LLDO) Patient left the department. (16:00 SCHI) INSTRUCTION (15:53 LWAL) DISCHARGE: BRAT DIET EXPANDED CHILD, CLEAR LIQUID DIET, DIVERTICULITIS. FOLLOWUP: Follow up with Primary Care Physician in 7-10 days. SPECIAL: Follow-up with your PCP. PRESCRIPTION Bentyl oral: TABLET : 20 mg : ORAL : Quantity: 1 Unit: tab(s) Route: ORAL Schedule: every 8 hours PRN Dispense: 30 Unit: tab(s) May substitute. Refills: 1 . (15:45 LLDO) NOTES: No Refills. (15:45 LLDO) Keflex: CAPSULE (HARD, SOFT, ETC.) : 500 mg : ORAL : Quantity: 1 Unit: cap(s) Route: ORAL Schedule: 3 times a day Dispense: &a-1R&a+25V*p+0X*d6217K*c202B*c15G*c2P*p-0X&a-25V&a+1R Name: Jeannine Galdamez : 1975 F40 MedRec: [id number] AcctNum: [id number] Prepared: [facility] Jun 15, 2016 21:19 by Interface Page [address] [facility] EMERGENCY RECORD 30 May substitute. Refills: No Refills . (15:45 LLDO) NOTES: ^s=No Refills No Refills. (15:45 LLDO) Septra DS: TABLET : 800 mg-160 mg : ORAL : Quantity: 1 Unit: tab(s) Route: ORAL Schedule: 2 times a day (before meals) Dispense: 20 May substitute. Refills: No Refills . (15:45 LLDO) NOTES: ^s=^s=No Refills No Refills No Refills. (15:45 LLDO) Tylenol-Codeine #3: TABLET : 300 mg-30 mg : ORAL : Quantity: 1-2 Unit: tab(s) Route: ORAL Schedule: every 4 hours prn Dispense: 30 Unit: tab(s) May substitute. Refills: No Refills . (15:45 LLDO) NOTES: ^s=^s=<CARET>s=No Refills No Refills No Refills No Refills. (15:45 LLDO) Zofran ODT: TABLET, RAPID DISSOLVE : 4 mg : ORAL : Quantity: 1-2 Unit: tab(s) Route: ORAL Schedule: every 6 hours PRN Dispense: 20 May substitute. Refills: 1 . (15:45 LLDO) NOTES: DISSOLVE UNDER TONGUE No Refills. (15:45 LLDO) Zofran ODT (REPRINT): TABLET, RAPID DISSOLVE : 4 mg : ORAL : Quantity: 1-2 Unit: tab(s) Route: ORAL Schedule: every 6 hours PRN Dispense: 20 May substitute. Refills: 1 . (15:53 LLDO) Tylenol-Codeine #3 (REPRINT): TABLET : 300 mg-30 mg : ORAL : Quantity: 1-2 Unit: tab(s) Route: ORAL Schedule: every 4 hours prn Dispense: 30 Unit: tab(s) May substitute. Refills: No Refills . (15:53 LLDO) Septra DS (REPRINT): TABLET : 800 mg-160 mg : ORAL : Quantity: 1 Unit: tab(s) Route: ORAL Schedule: 2 times a day (before meals) Dispense: 20 May substitute. Refills: No Refills . (15:54 LLDO) Keflex (REPRINT): CAPSULE (HARD, SOFT, ETC.) : 500 mg : ORAL : Quantity: 1 Unit: cap(s) Route: ORAL Schedule: 3 times a day Dispense: 30 May substitute. Refills: No Refills . (15:54 LLDO) Bentyl oral (REPRINT): TABLET : 20 mg : ORAL : Quantity: 1 Unit: tab(s) Route: ORAL Schedule: every 8 hours PRN Dispense: 30 Unit: tab(s) May substitute. Refills: 1 . (15:54 LLDO) IMAGING *DISCHARGE INSTRUCTIONS RECEIPT: Image captured from scanner. (16:59 [facility]) Page 2 added. Image captured from scanner. (16:59 [facility]) &a-1R&a+25V*p+0X*e2433T*c202B*c15G*c2P*p-0X&a-25V&a+1R Name: Jeannine Galdamez : 1975 F40 MedRec: [id number] AcctNum: [id number] Prepared: SunJun 15, 2016 21:19 by Interface Page [address] [facility] EMERGENCY RECORD *SUPPLY CHARGE SHEET: Image captured from scanner. (17:00 [facility]) ADMIN DIGITAL SIGNATURE: MD Ortez Lloyd. (15:51 LLDO) MD Ortez Lloyd. (15:51 LLDO) MD Ortez Lloyd. (15:51 LLDO) ADRIAN Nguyen, Julia. (17:00 [facility]) MD Ortez Lloyd. (21:11 LLDO) RESULTS RADIOLOGY: CT Abdomen Pelvis W Con Observe DT: SunJun 15, 2016 10:05, ABDPELV +CT ABDOMEN AND PELVIS WITH IV AND ORAL CONTRAST: HISTORY: Abdomen pain. Diarrhea. FINDINGS: No comparison. The lung bases are clear. The liver, spleen, kidneys, adrenal glands, and pancreas have a normal CT appearance. No enlarged lymph nodes or free fluid are apparent. The appendix is n ot inflamed. Urinary bladder is unremarkable. Arcuate configuration of the uterus is suspected. IMPRESSION: No acute abnormalities are demonstrated. POS: [facility] . (14:24 [facility]) LABORATORY: Lactic Acid for Sepsis Collection DT: SunJun 15, 2016 10:32, Lactic Acid - Sepsis 0.8 mmol/L, Range (0.5-2.2). (10:51 [facility]) CBC with Differential Collection DT: SunJun 15, 2016 10:32, White Blood Cell (WBC) Count 7.0 thou/uL, Range (4.8-10.8), Red Blood Cell (RBC) Count 4.73 mill/uL, Range (4.20-5.40), Hemoglobin 15.1 g/dL, Range (12.0-16.0), Hematocrit 44.8 %, Range (36.0-47.0), Mean Corpuscular Volume 94.8 fl, Range (81.0-99.0), *Mean Corpuscular Hemoglobin 32.0 - H pg, Range (27.0-31.0), Mean Corpuscular HGB CONC 33.8 g/dL, Range (32.0-36.0), RBC Distribution Width 12.0 %, Range (11.5-14.5), Platelet Count 270 thou/uL, Range (130-400), Mean Platelet Volume 9.0 fL, Range (7.4-10.4), %Neutrophils 65.3 %, Range (42.0-75.0), %Lymphocytes 23.2 %, Range (21.0-51.0), %Monocytes 7.2 %, Range (0.0-10.0), %Eosinophils 2.5 %, Range (0.0-10.0), *%Basophils 1.9 - H %, Range (0.0-1.0), &a-1R&a+25V*p+0X*m5981Y*c202B*c15G*c2P*p-0X&a-25V&a+1R Name: Jeannine Galdamez : 1975 F40 MedRec: [id number] AcctNum: [id number] Prepared: SunJun 15, 2016 21:19 by Interface Page [address] [facility] EMERGENCY RECORD #Neutrophils 4.6 thou/uL, Range (1.40-6.50), #Lymphocytes 1.6 thou/uL, Range (1.20-3.40), #Monocytes 0.5 thou/uL, Range (0.11-0.59), #Eosinphils 0.2 thou/uL, Range (0.0-0.7), #Basophils 0.1 thou/uL, Range (0.0-0.2). (10:51 [facility]) Urinalysis with Microscopic Collection DT: SunJun 15, 2016 11:52, Color Yellow , Range (Yellow), Clarity Cloudy , Range (Clear), Specific [place], Urine 1.026 , Range (1.002-1.036), pH, Urine 5.5 , Range (5.0-9.0), Leukocyte Negative , Range (Negative), Nitrite Negative , Range (Negative), Protein, Urine (Dipstick) Negative mg/dL, Range (Neg-Trace), Glucose, Urine (Dipstick) Negative mg/dL, Range (Negative), Ketone, Urine Negative mg/dL, Range (Negative), Urobilinogen 0.2 mg/dL, Range (0.2-1.0), Bilirubin Negative , Range (Negative), Blood, Urine Negative , Range (Negative), RBC/HPF 0-3 HPF, Range (0-3), WBC/HPF 0-3 HPF, Range (0-3), Squamous Epithelial 0-3 HPF, Range (0-3), *Bacteria/HPF 1+ - H HPF, Range (None Seen). (13:09 [facility]) Test, Serum (BHCG) Collection DT: SunJun 15, 2016 10:32, BHCG - Serum NEGATIVE , Range (NEGATIVE), Method of sensitivity- Indeterminant: results should be repeated, after 48 hours. Positive: results may be detected as early as 4-5 days before a first missed menses. Elimination of BHCG-, Elimination following first trimester D&C: 29-44 Days , Elimination following term : 8-24 Days . (13:09 [facility] B type Natriuretic Peptide Collection DT: SunJun 15, 2016 10:32, B type Natriuretic Peptide 13.8 pg/mL, Range (0-100). (13:09 [facility] Comprehensive Metabolic Panel Collection DT: SunJun 15, 2016 10:32, Sodium 140 mmol/L, Range (136-145), Potassium 4.5 mmol/L, Range (3.5-5.1), *Chloride 108 - H mmol/L, Range (98-107), Carbon Dioxide 22 mmol/L, Range (22-29), Anion Gap 15 mmol/L, Range (10-20), BUN (Urea Nitrogen) 15 mg/dL, Range (7.0-18.7), Creatinine 0.78 mg/dL, Range (0.6-1.1), Estimated GFR-MDRD 82 , Reference Range for Estimated GFR: Greater than 90, mL/min/1.73 m2 NOTE: The MDRD equation has not been validated for use, with the elderly (over 70 years of age), women, patients with, serious comorbid condition or persons with extremes of &a-1R&a+25V*p+0X*k9710X*c202B*c15G*c2P*p-0X&a-25V&a+1R Name: Jeannine Galdamez : 1975 F40 MedRec: [id number] AcctNum: [id number] Prepared: SunJun 15, 2016 21:19 by Interface Page [address] [facility] EMERGENCY RECORD body size, muscle, mass, or nutritional status. , Glucose 99 mg/dL, Range (70-105), Calcium 9.0 mg/dL, Range (7.8-10.44), Bilirubin, Total 0.8 mg/dL, Range (0.2-1.2), Protein, Total 6.7 g/dL, Range (6.0-8.3), NOTE: Plasma values are generally 0.3 to 0.5 g/dL higher than serum values, due to the presence of fibrinogen. , Albumin 4.3 g/dL, Range (3.5-5.0), Globulin 2.4 g/dL, Range (2.4-3.5), Alb/Glob Ratio 1.8 g/dL, Range (1.2-2.2), Alkaline Phosphatase 69 U/L, Range (40-150), AST (SGOT) 16 U/L, Range (5-34), ALT (SGPT) 15 U/L, Range (0-55). (13:09 [facility]) Thornton: ELVIS=MD Pérez, Filemon WHARTON=ADRIAN Farmer, Camila MACEDO=ADRIAN Nguyen, marie &a-1R&a+25V*p+0X*n6132D*c202B*c15G*c2P*p-0X&a-25V&a+1R Name: Jeannine Galdamez : 1975 F40 MedRec: [id number] AcctNum: [id number] Prepared: SunJun 15, 2016 21:19 by Interface Page [address] [facility] MEDICATION RECONCILIATION You were seen in the Emergency Department on: SunJun 15, 2016 KNOWN ALLERGIES Flagyl: Source: Patient, - HIVES, DIZZINESS, HEADACHE MEDICATIONS GIVEN WHILE IN THE EMERGENCY DEPARTMENT Duramorph (PF) (morphine sulfate/preservative free) - Dose: 4 milligram(s) : IV Push Toradol injection (ketorolac tromethamine) - Dose: 30 milligram(s) : IV Push Zofran intravenous (ondansetron HCl) - Dose: 8 milligram(s) : IV Push sodium chloride 0.9 % intravenous (0.9 % sodium chloride) - Dose: 1 liter(s) : IV Fluid Infusion Duramorph (PF) (morphine sulfate/preservative free) - Dose: 4 milligram(s) : IV Push Bentyl oral (dicyclomine HCl) - Dose: 20 milligram(s) : Oral HOME MEDICATIONS CONTINUE PRESCRIBED Valium : TABLET : Strength - 5 mg : ORAL Continue as prescribed Patient had been takin mg Oral 2 times a day (before meals). Zoloft : TABLET : Strength - 100 mg : ORAL Continue as prescribed Patient had been takin mg Oral once a day. Notes from the emergency department Reviewed with family Reviewed with patient Reviewed with family Reviewed with patient PRESCRIPTIONS (5) Printed (5) Bentyl oral : TABLET : 20 mg : ORAL Quantity: 1, Unit: tab(s), Route: ORAL, Schedule: every 8 hours PRN, Dispense: 30 Unit: tab(s) &a-1R&a+25V*p+0X*s9308O*c202B*c15G*c2P*p-0X&a-25V&a+1R Name: Jeannine Galdamez : 1975 F40 MedRec: [id number] AcctNum: [id number] Prepared: Perri Jun 15, 2016 21:[address] [facility] MEDICATION RECONCILIATION Keflex : CAPSULE (HARD, SOFT, ETC.) : 500 mg : ORAL Quantity: 1, Unit: cap(s), Route: ORAL, Schedule: 3 times a day, Dispense: 30 Septra DS : TABLET : 800 mg-160 mg : ORAL Quantity: 1, Unit: tab(s), Route: ORAL, Schedule: 2 times a day (before meals), Dispense: 20 Tylenol-Codeine #3 : TABLET : 300 mg-30 mg : ORAL Quantity: 1-2, Unit: tab(s), Route: ORAL, Schedule: every 4 hours prn, Dispense: 30 Unit: tab(s) &a-1R&a+25V*p+0X*k3938P*c202B*c15G*c2P*p-0X&a-25V&a+1R Name: Jeannine Galdamez : 1975 F40 MedRec: [id number] AcctNum: [id number] Prepared: Perri Jun 15, 2016 21:19 by Interface pMCora SANTILLAN
== END 2016-06-15 16:00 | disposition home or self-care (01) ==
LOC: MADERS 09:31
DX: K57.92 Diverticulitis of intestine, part unspecified, without perforation or abscess without bleeding (principal); F41.9 Anxiety disorder, unspecified; F17.210 Nicotine dependence, cigarettes, uncomplicated
CPT/HCPCS: 36415; 74177; 80053; 81001; 83605; 83880; 84703; 85025; 87086; 96361; 96374; 96375; 96376; J1885; J2270; J2405; J7050

== ENCOUNTER 2016-07-31 17:08 | Emergency (ER) | payer OTHER ==
[2016-07-31] MEDS ORDERED: Ondansetron HCl/PF 4 MG/2 ML Vial ONE (18:00)
[2016-07-31] MEDS ORDERED: Hyoscyamine Sulfate SL 0.125 mg Tablet ONE (18:00)
[2016-07-31] MEDS ORDERED: Furosemide 40 MG/4 ML VIAL ONE (18:00)
[2016-07-31 18:05] LABS: Bilirubin Negative (Negative); Blood, Urine Negative (Negative); Clarity Slightly Cloudy (Clear); Glucose, Urine (Dipstick) Negative (Negative); Leukocyte Negative (Negative); Nitrite Negative (Negative); Protein, Urine (Dipstick) Negative (Neg-Trace); Urobilinogen 0.2 mg/dL (0.2-1.0); pH, Urine 8.5 (5.0-9.0)
[2016-07-31 18:08] LABS: #Basophils 0.1 thou/uL (0.0-0.2); #Eosinphils 0.3 thou/uL (0.0-0.7); #Lymphocytes 1.7 thou/uL (1.20-3.40); #Monocytes 0.5 thou/uL (0.11-0.59); #Neutrophils 5.6 thou/uL (1.40-6.50); %Basophils 0.9 % (0.0-1.0); %Eosinophils 3.4 % (0.0-10.0); %Lymphocytes 20.3 % (21.0-51.0); %Monocytes 6.3 % (0.0-10.0); %Neutrophils 69.1 % (42.0-75.0); Hemoglobin 14.7 g/dL (12.0-16.0); Mean Corpuscular HGB CONC 35.7 g/dL (32.0-36.0); Mean Corpuscular Hemoglobin 33.3 pg (27.0-31.0); Mean Corpuscular Volume 93.3 fl (81.0-99.0); Mean Platelet Volume 9.3 fL (7.4-10.4); Platelet Count 236 thou/uL (130-400); RBC Distribution Width 11.6 % (11.5-14.5); Red Blood Cell (RBC) Count 4.42 mill/uL (4.20-5.40); White Blood Cell (WBC) Count 8.1 thou/uL (4.8-10.8)
[2016-07-31 18:23] LABS: ALT (SGPT) 7 U/L (0-55); AST (SGOT) 13 U/L (5-34); Albumin 4.1 g/dL (3.5-5.0); Alkaline Phosphatase 76 U/L (40-150); Amylase 259 U/L (25-125); Anion Gap 13 mmol/L (10-20); BUN (Urea Nitrogen) 11 mg/dL (7.0-18.7); Bilirubin, Total 0.5 mg/dL (0.2-1.2); Calc. Creatinine Clearance 0 mL/min (70-130); Calcium 8.7 mg/dL (7.8-10.44); Carbon Dioxide 24 mmol/L (22-29); Chloride 105 mmol/L (98-107); Estimated GFR-MDRD 84; Globulin 2.3 g/dL (2.4-3.5); Glucose 111 mg/dL (70-105); Lipase 136 U/L (8-78); Potassium 4.2 mmol/L (3.5-5.1); Protein, Total 6.4 g/dL (6.0-8.3); Sodium 138 mmol/L (136-145)
--- NOTE | 2016-07-31 18:35 | RAD ---
ONE VIEW CHEST: Comparison: 09-30-14 History: Right upper quadrant abdominal pain. FINDINGS: Normal cardiac silhouette. The pulmonary vessels and hilum are normal. No mass. No consolidation. No pneumothorax or osseous abnormality. IMPRESSION: No acute cardiopulmonary process. POS: [facility]
[2016-07-31] MEDS ORDERED: ceFAZolin Sodium 1 GM VIAL ONE ×2 (20:27→20:28)
== END 2016-07-31 22:22 | disposition short-term general hospital (02) ==
LOC: MADERS 17:08
DX: K80.50 Calculus of bile duct without cholangitis or cholecystitis without obstruction (principal); F41.9 Anxiety disorder, unspecified; F17.210 Nicotine dependence, cigarettes, uncomplicated; Z79.899 Other long term (current) drug therapy
CPT/HCPCS: 36415; 71010; 80053; 81003; 82150; 83690; 85025; 87086; 96365; 96366; 96375; 96376; J0690; J1940; J2270; J2405; J7050

== ENCOUNTER 2016-11-09 14:41 | Emergency (ER) | payer OTHER ==
[2016-11-09 15:20] LABS: Clarity Clear (Clear); Glucose, Urine (Dipstick) Negative (Negative); Leukocyte Negative (Negative); Nitrite Negative (Negative); Protein, Urine (Dipstick) Negative (Neg-Trace); Specific Gravity, Urine 1.015 (1.005-1.030); Urobilinogen 0.2 mg/dL (0.2-1.0); pH, Urine 7.5 (5.0-9.0)
[2016-11-09 15:21] LABS: Bilirubin Negative (Negative); Blood, Urine Moderate (Negative)
[2016-11-09 15:23] LABS: Bacteria/HPF Rare-Few HPF (None Seen); WBC/HPF 0-3 HPF (0-3)
[2016-11-09 15:55] LABS: Specific Gravity 1.015 (1.002-1.036)
[2016-11-09 15:56] LABS: Pregnancy Test - Urine (BHCG) Negative (Negative); Pregu Control Background? CLEAR/WHITE (CLR/WHITE); Pregu Control Bar Appear? YES (CONTROL BAR)
[2016-11-09 15:58] LABS: #Basophils 0.1 thou/uL (0.0-0.2); #Eosinphils 0.1 thou/uL (0.0-0.7); #Lymphocytes 2.3 thou/uL (1.20-3.40); #Monocytes 0.7 thou/uL (0.11-0.59); #Neutrophils 8.3 thou/uL (1.40-6.50); %Eosinophils 1.1 % (0.0-10.0); %Lymphocytes 19.7 % (21.0-51.0); %Monocytes 5.9 % (0.0-10.0); %Neutrophils 72.3 % (42.0-75.0); Hemoglobin 14.9 g/dL (12.0-16.0); Mean Corpuscular HGB CONC 34.7 g/dL (32.0-36.0); Mean Corpuscular Hemoglobin 32.7 pg (27.0-31.0); Mean Corpuscular Volume 94.3 fl (81.0-99.0); Platelet Count 281 thou/uL (130-400); RBC Distribution Width 11.1 % (11.5-14.5); Red Blood Cell (RBC) Count 4.55 mill/uL (4.20-5.40); White Blood Cell (WBC) Count 11.4 thou/uL (4.8-10.8)
[2016-11-09 16:12] LABS: ALT (SGPT) 10 U/L (8-55); AST (SGOT) 11 U/L (5-34); Albumin 4.2 g/dL (3.5-5.0); Alkaline Phosphatase 79 U/L (40-150); Anion Gap 14 mmol/L (10-20); BUN (Urea Nitrogen) 10 mg/dL (7.0-18.7); Bilirubin, Total 0.4 mg/dL (0.2-1.2); Calc. Creatinine Clearance 0 mL/min (70-130); Carbon Dioxide 24 mmol/L (22-29); Chloride 108 mmol/L (98-107); Estimated GFR-MDRD 77; Globulin 2.5 g/dL (2.4-3.5); Glucose 104 mg/dL (70-105); Protein, Total 6.7 g/dL (6.0-8.3); Sodium 142 mmol/L (136-145)
[2016-11-09] MEDS ORDERED: Pantoprazole 40 MG VIAL ONE (16:55)
== END 2016-11-09 18:00 ==
LOC: MADERS 14:41
DX: K29.00 Acute gastritis without bleeding (principal); E28.2 Polycystic ovarian syndrome; F41.9 Anxiety disorder, unspecified; F17.210 Nicotine dependence, cigarettes, uncomplicated; Z98.51 Tubal ligation status
CPT/HCPCS: 36415; 80053; 81003; 81015; 81025; 82150; 83690; 85025; 96374; C9113

== ENCOUNTER 2016-12-09 18:52 | Emergency (ER) | payer OTHER ==
[2016-12-09] MEDS ORDERED: Ketorolac Tromethamine 60 MG/2 ML VIAL ONE (20:22)
--- NOTE | 2016-12-09 20:28 | CT ---
EXAM: NONCONTRAST HEAD CT 12/09/16 HISTORY: Pain. Injury. COMPARISON: None. TECHNIQUE: Noncontrast head CT is performed from skull base to skull vertex. Sagittal and coronal reformatted images are submitted for interpretation. FINDINGS: No parenchymal hemorrhage. No extra-axial hematoma. No parenchymal mass, mass effect, or midline rodney ft. Brain volume, age appropriate. Cortical orr-white matter differentiation is preserved. Ventricles and sulci are patent and symmetric. There is opacification due to mucosal disease involving the frontal sinuses and ethmoid air cells. A dequate aeration of the mastoid air cells. Calvarium is intact. IMPRESSION: No intracranial posttraumatic sequela. POS: [facility]
--- NOTE | 2016-12-09 21:13 | CT ---
EXAM: CERVICAL SPINE CT WITHOUT CONTRAST 12/09/16 HISTORY: Injury. Posttraumatic pain. COMPARISON: None. TECHNIQUE: Cervical spine CT is performed without IV or intrathecal contrast. Reformatted images are submitted for interpretation. FINDINGS: The visualized soft tissue neck structures, upper mediastinum and lung apices are unremarkable. Vary ing degrees of central canal stenosis and foraminal narrowing on the basis of degenerative change. T here is a broad based disc osteophyte complex of the right paracentral component at the C5-C6 level as well as a broad based disc osteophyte complex at the C6-C7 level. There is at least moderate cent ral canal stenosis at the aforementioned levels. Limited evaluation by technique. Straightening of the normal cervical lordosis likely due to patient position, muscle spasm or cervic al collar. Lateral masses of C1 and C2 as well as the intra-articular facets have appropriate alignm ent. Odontoid process is intact. Cervical spine vertebral body height is maintained. No fracture. IMPRESSION: 1. No fracture. 2. Degenerative change of the cervical spine as detailed above. 3. Central canal stenosis of C5-C6 and C6-C7. POS: [facility]
== END 2016-12-09 20:55 ==
LOC: MADERS 18:52
DX: S00.83XA Contusion of other part of head, initial encounter (principal); F41.9 Anxiety disorder, unspecified; F17.210 Nicotine dependence, cigarettes, uncomplicated; Y04.8XXA Assault by other bodily force, initial encounter
CPT/HCPCS: 70450; 72125; 96372; J1885

== ENCOUNTER 2018-08-19 12:11 | Emergency (ER) | payer OTHER ==
--- NOTE | 2018-08-19 14:21 | RAD ---
RIGHT FOOT 3 VIEWS: DATE: 08/19/18 HISTORY: Pain with redness. FINDINGS: Tarsals appear normal. Metatarsals and phalanges unremarkable. MTP joints unremarkable with very mild DJD at the first MTP joint. No fracture or acute abnormality. IMPRESSION: Unremarkable right foot. POS: [facility]
== END 2018-08-19 13:30 | disposition home or self-care (01) ==
LOC: MADERS 12:11
DX: S90.31XA Contusion of right foot, initial encounter (principal); L03.115 Cellulitis of right lower limb; F17.210 Nicotine dependence, cigarettes, uncomplicated; W23.0XXA Caught, crushed, jammed, or pinched between moving objects, initial encounter

== ENCOUNTER 2020-05-07 13:10 | Emergency (ER) | payer OTHER ==
[2020-05-07] MEDS ORDERED: Ketorolac Tromethamine 30 MG/ML VIAL ONE (13:50)
== END 2020-05-07 14:13 | disposition home or self-care (01) ==
LOC: MADERS 13:10
DX: S29.012A Strain of muscle and tendon of back wall of thorax, initial encounter (principal); M25.512 Pain in left shoulder; F17.210 Nicotine dependence, cigarettes, uncomplicated; Z79.899 Other long term (current) drug therapy; X50.1XXA Overexertion from prolonged static or awkward postures, initial encounter
CPT/HCPCS: 96372; 99283; J1885

== ENCOUNTER 2024-06-09 14:07 | Emergency (ER) | payer OTHER, SELFPAY ==
[2024-06-09] MEDS ORDERED: Lidocaine 1% PF 5 ML VIAL ONE ×2 (16:38→17:24)
== END 2024-06-09 17:56 | disposition home or self-care (01) ==
LOC: MADERS 14:07
DX: S90.211A Contusion of right great toe with damage to nail, initial encounter (principal); F17.210 Nicotine dependence, cigarettes, uncomplicated; W22.8XXA Striking against or struck by other objects, initial encounter
CPT/HCPCS: 11740; 99283